=== PATIENT | female | born 1955 | race Caucasian/White ===

== ENCOUNTER 2017-07-13 09:26 | Emergency (ER) | payer OTHER, SELFPAY ==
--- NOTE | 2017-07-13 09:26 | DT_ITS ---
This patient was seen during an EMR downtime July 13, 2017 - July 20, 2017. This patient may have a combination of paper and electronic documentation or all paper documentation. All documentation is viewable within the e-chart portion of [employer] for each patient visit.
--- NOTE | 2017-07-13 10:00 | CT_ITS ---
STUDY: CT BRAIN WITHOUT CONTRAST REASON FOR EXAM: Female, 61 years old. DIZZINESS,HEADACHE. Weight loss. Prelim report scanned in RADIATION DOSAGE (If Supplied By Facility): CTDIvol = ( 44.99 ) mGy, DLP = ( 762.36 ) mGycm TECHNIQUE: Transaxial CT imaging of the brain was performed without administration of intravenous contrast material. Individualized dose optimization techniques were used for this CT. COMPARISON: None. FINDINGS: Normal soft tissue structures. Normal calvarium. There are calcifications around the cavernous carotid arteries. This is consistent for atherosclerotic disease. There is mild cerebral atrophy with widening of the extra-axial spaces and ventricular dilatation. Normal white matter tracts of the cerebral hemispheres. Normal basal ganglia and thalami. Normal brainstem. Normal cerebellum. There is no intracranial hemorrhage. There are no findings of an acute ischemic infarction. Normal visualized paranasal sinuses. CT/Brain/Head without Contrast IMPRESSION: There is mild cerebral atrophy with widening of the extra-axial spaces and ventricular dilatation. There are no acute findings. Electronically Signed: Daniel Thomas MD at 17:01 EDT , Service support ,
--- NOTE | 2017-07-13 10:15 | RAD_ITS ---
STUDY: X-RAY CHEST REASON FOR EXAM: Female, 61 years old. Weight loss. Smoking TECHNIQUE: PA and lateral views of the chest. COMPARISON: None. FINDINGS: There are monitoring devices. There is hyperinflation of the lungs consistent with chronic obstructive lung disease (COPD). There is no demonstrated pleural abnormality. Normal size heart. Normal mediastinum and anand. Normal visualized pulmonary arteries. Normal visualized aortic arch and descending thoracic aorta. Normal visualized thoracic spine. Normal visualized ribs, clavicles, and shoulders. There is no demonstrated abnormality of the visualized soft tissue structures of the upper abdomen. RAD/Chest PA and Lateral IMPRESSION: Degenerative changes, as described above. No demonstrated acute cardiopulmonary process. Electronically Signed: Michoacano Morin MD at 13:38 EDT , Service support ,
[2017-07-16 11:11] LABS: Anion Gap 10 (5-15); BUN 14 mg/dL (7-18); BUN/Creat Ratio 14.4 RATIO (10-20); Calcium,Total 8.9 mg/dL (8.5-10.1); Chloride 101 mmol/L (98-107); Creatinine, Serum 0.97 mg/dL (0.55-1.02); EST Glomerular Filtration Rate 62 mL/min (>60); Est Glom Filt Rate - Afr Amer 75 mL/min (>60); Glucose 114 mg/dL (74-106); Potassium 3.1 mmol/L (3.5-5.1); Sodium Level 140 mmol/L (136-145)
[2017-07-16 16:58] LABS: Absolute Lymphocyte Count 2.48 X10^3/ul (0.83-4.51); Absolute Neutrophil Count 2.8 X10^3/uL (2.0-7.7); Basophil# 0.01 X10^3/uL; Basophil% 0.2 % (0-1); Eosinophil# 0.08 X10^3/uL; Eosinophils% 1.4 % (0-5); Hematocrit 41.5 % (37-47); Hemoglobin 14.3 g/dl (12.0-15.0); Lymphocyte # 2.48 X10^3/ul (4.0); Lymphocyte % 43.9 % (19-41); Mean Corp Hgb Conc 34.5 g/gl (32-36); Mean Corpuscular Hgb 29.9 pg (27.0-32.0); Mean Corpuscular Volume 86.8 fL (81-99); Mean Platelet Vol. 9.9 fl (6.2-12.0); Monocyte% 5.3 % (0-10); Neutrophil # 2.78 X10^3/uL (2.7-7.7); Neutrophil % 49.2 % (47-70); POSITIVE COUNT NO; POSITIVE DIFFERENTIAL NO; POSITIVE MORPHOLOGY NO; Platelet Count 276 K/mm3 (150-450); RBC Distribution Width CV 12.7 % (11.6-14.6); RBC Distribution Width SD 39.6 fl (35.1-43.9); Red Blood Count 4.78 M/mm3 (4.2-5.4); White Blood Count 5.7 K/mm3 (4.4-11.0)
== END 2017-07-13 12:40 | disposition home or self-care (01) ==
PROVIDERS: Emergency Provider Emergency Medicine; Family Provider Nurse Practitioner Family; PCP Nurse Practitioner Family
DX: R51 Headache (principal); I10 Essential (primary) hypertension; K21.9 Gastro-esophageal reflux disease without esophagitis; B19.20 Unspecified viral hepatitis C without hepatic coma; R63.4 Abnormal weight loss; Z79.899 Other long term (current) drug therapy
CPT/HCPCS: 70450; 71046; 80048; 85025; 99284; J7030; A4216

== ENCOUNTER 2020-04-19 08:06 | Outpatient (RCR) | payer OTHER, SELFPAY ==
[2016-01-22 04:53] VITALS: BMI 20.9
[2020-04-19] MEDS: COVID-19 VACC, MRNA(PFIZER)/PF 30 MCG/0.3 ML SYRINGE IM (16:22)
[2020-05-10] MEDS: COVID-19 VACC, MRNA(PFIZER)/PF 30 MCG/0.3 ML SYRINGE IM (16:08)
== END 2020-07-17 23:59 ==
LOC: IMMUN 08:06
PROVIDERS: PCP Nurse Practitioner Adult Health; Referring Provider Family Medicine; Visit Provider Family Medicine
DX: Z23 Encounter for immunization (principal)
CPT/HCPCS: 0001A; 0002A; 91300

== ENCOUNTER 2024-01-28 06:53 | Day surgery (SDC) | payer MEDICARE, SELFPAY ==
--- NOTE | 2024-01-21 12:23 | EKG12_ITS ---
Test Reason : PREOP Blood Pressure : */* mmHG Vent. Rate : 77 BPM Atrial Rate : 77 BPM P-R Int : 158 ms QRS Dur : 120 ms QT Int : 398 ms P-R-T Axes : 81 119 64 degrees QTcB Int : 450 ms Sinus rhythm with occasional Premature ventricular complexes Right bundle branch block Septal infarct , age undetermined Abnormal ECG Confirmed by PARVEEN DIAMOND, CON ([id number]), editor in chief newspaper NANCY ROMAN ([id number]) on 01/27/2024 2:13:08 P M Referred By: Ada Romo Confirmed By: CON SAINI MD
--- NOTE | 2024-01-22 08:52 | PAT.ANESEVAL ---
Pre-Assessment Diagnosis/Proposed Procedure Planned Operative Procedure(s): CYSTO BLADDER BIOPSY WITH FULGERATION Anesthesia History Anesthesia History - jig and fixture builder: Anesthesia History - jig and fixture builder Hx Hospitalization No 01/20/24 12:29 Any Problems With Anesthesia No 01/20/24 12:29 Cholinesterase deficiency No 01/20/24 12:29 You/Your Family Experience No 01/20/24 12:29 fever (hyperthermia) with Relationship Recent Exposure to Contagious Disease Does patient have nerve No 01/20/24 12:29 stimulator Patient instructed to have device shut off --Does patient have Pacemaker or ICD? When Was Last Pacemaker Check QUESTION #4 FULL TEXT: You/Your Family Experience fever (hyperthermia) with Anesthesia Last Oral Intake Last Oral intake: Last Oral Intake NPO since Meds taken in AM with sips of water? Meds patient instructed to take am of surgery PONV PONV - jig and fixture builder: PONV - jig and fixture builder Female Yes 01/20/24 12:29 HX of Motion Sickness Yes 01/20/24 12:29 HX of N/V After Surgery No 01/20/24 12:29 Non-Smoker Yes 01/20/24 12:29 Duration of Surgery greater No 01/20/24 12:29 than 60 minutes Number of Risk Factors 3 01/20/24 12:29 PONV Score Moderate Risk 01/20/24 12:29 Respiratory Assessment Respiratory Assessment - jig and fixture builder: Respiratory Tract Infection Hx - jig and fixture builder Hx Respiratory Tract Infection No 01/20/24 12:29 STOP Sleep Apnea STOP Sleep Apnea - jig and fixture builder: STOP Sleep Apnea - jig and fixture builder Hx Hypertension Yes: CONTROLLED WITH MEDS 01/20/24 12:29 Hx Sleep Apnea No 01/20/24 12:29 CPAP No 01/22/16 09:54 BIPAP No 01/22/16 01:35 Do you snore loudly (louder No 01/20/24 12:29 than talking or can be heard Do you often feel tired/ Yes 01/20/24 12:29 fatigued/ sleepy during daytime? Has anyone observed you stop No 01/20/24 12:29 breathing during sleep? STOP Results Positive 01/20/24 12:29 QUESTION #5 FULL TEXT : Do you snore loudly (louder than talking or can be heard through closed doors)? Tobacco Use History Tobacco Use History - jig and fixture builder: Tobacco Use History - jig and fixture builder Tobacco Use Smoking Status Former smoker 01/20/24 12:29 Hx Tobacco Use No 01/20/24 12:29 Years Smoking Packs Smoked per Day Smoking Cessation Date was Yes - quit smoking within 15 01/20/24 12:29 within the last 15 years years Hx Smoking Cessation Date 02/10/16 01/20/24 12:29 Hx Smoking Cessation No 01/20/24 12:29 Counseling Hematologic Medial History Hematologic Hx - jig and fixture builder: Hematologic Medical Hx - chief engineer's helper Hx of Blood Transfusion No 01/20/24 12:29 Hx of Transfusion in last 3 No 01/20/24 12:29 Months Date of Last Transfusion (if within last 3 months) Ever experience any problems No 01/20/24 12:29 with transfusion(s)? Specify any problems Hx of Preganancy in last 3 No 01/20/24 12:29 Months Nurse Filling Out Transfusion DSCHRIBER 01/20/24 12:29 & Questions: Date: 01/20/24 01/20/24 12:29 Time: 12:31 01/20/24 12:29 Patient unable to answer at this time (ie. confused, unrespo /Reproduction History /Reproductive History - jig and fixture builder: /Reproductive Hx- jig and fixture builder Hx Now No 01/20/24 12:29 Gestational Age (in weeks): EDC: Hx Hx Para Hx Section SAB No 01/20/24 12:29 [facility] Medical History (Updated 01/20/24 @ 12:36 by Lyla Ornelas) Wears glasses Wears dentures Post-menopausal Depression Anxiety Thyroid disease Bladder disease Fatty liver Easy bruising High cholesterol Back pain Gastric reflux Former smoker History of pain when walking Hypertension Home Medications ?Medication ?Instructions ?Recorded ?Last Taken ?Type lorazepam 2 mg tablet (Ativan) 2 mg PO BID 10/10/15 01/20/16 History trazodone 50 mg tablet 50 mg PO QHS 10/10/15 01/19/16 History venlafaxine 100 mg tablet 150 mg PO BID 10/10/15 01/20/16 History levothyroxine 25 mcg tablet 25 mcg PO DAILY 01/20/16 01/20/16 History losartan 25 mg tablet 25 mg PO DAILY 01/20/16 01/20/16 History pantoprazole 40 mg tablet,delayed 40 mg PO DAILY 01/20/16 01/20/16 History release amlodipine 2.5 mg tablet 2.5 mg PO DAILY 01/20/24 Unknown History famotidine 20 mg tablet 20 mg PO QHS 01/20/24 Unknown History irbesartan 150 mg tablet 150 mg PO DAILY 01/20/24 Unknown History olanzapine 5 mg tablet 5 mg PO QHS 01/20/24 Unknown History solifenacin 5 mg tablet 5 mg PO DAILY 01/20/24 Unknown History Allergy/AdvReac Type Severity Reaction Status Date / Time Penicillins Allergy Swelling Verified 01/20/24 12:20 Surgical History (Updated 01/20/24 @ 12:36 by Lyla Ornelas) History of esophagogastroduodenoscopy (EGD) History of lumpectomy of right breast Hx of cholecystectomy History of ERCP Social History Smoking Status: Former smoker Audit: Pertinent Findings Pertinent Findings EKG Perinent findings: 2015 NSR, NSST Recommendation Anesthesia Recommendation Anesthesia recommendation: OPTIMIZED for anesthesia
[2024-01-25 12:38] LABS: Hemoglobin 11.6 g/dL (12.0-15.0); Mean Corp Hgb Conc 32.2 g/dL (32-36); Mean Corpuscular Hgb 29.5 pg (27.0-32.0); Mean Corpuscular Volume 91.6 fL (81-99); Mean Platelet Vol. 9.4 fl (6.2-12.0); Platelet Count 240 K/mm3 (150-450); RBC Distribution Width SD 43.8 fl (35.1-43.9); Red Blood Count 3.93 M/mm3 (4.2-5.4); White Blood Count 5.9 K/mm3 (4.4-11.0)
[2024-01-25 12:48] LABS: Prothrombin Time (Protime)PT. 13.4 SECONDS (11.7-14.9)
[2024-01-25 13:06] LABS: Anion Gap 3 (5-15); BUN 14 mg/dL (7-18); BUN/Creat Ratio 15.5 RATIO (10-20); Calcium,Total 9.4 mg/dL (8.5-10.1); Chloride 108 mmol/L (98-107); EST Glomerular Filtration Rate 66 mL/min (>60); Est Glom Filt Rate - Afr Amer 80 mL/min (>60); Glucose 127 mg/dL (74-106); Potassium 3.6 mmol/L (3.5-5.1); Sodium Level 142 mmol/L (136-145)
[2024-01-25 13:34] LABS: AST(SGOT) 18 U/L (15-37); Alanine Aminotransfer ALT/SGPT 19 U/L (13-56); Albumin, Serum 3.6 g/dL (3.2-5.0); Alkaline Phosphatase 67 U/L (45-117); Bilirubin, Direct 0.07 mg/dL (0.00-0.30); Globulin 3.8 g/dL (2.2-4.2); Protein, Total 7.4 g/dL (6.4-8.2)
[2024-01-28] VITALS (7 sets, daily range): BP systolic 102–114; BP diastolic 50–66; PULSE 57–71; RESP 14–18; TEMP 36.2–36.8; O2SAT 94–99; BMI 18.2
--- NOTE | 2024-01-28 07:21 | PCM.PRE.AN2 ---
ASA Classification* ASA Classification ASA Classification: 2 Assessment & Plan Anesthesia* Anesthesia Assessment Anesthesia Assessment: Discussed sedation and/or anesthesia options, risks, benefits, and alternatives with patient/parents/legal guardian/POA. Questions invited. The patient/parents/legal guardian/POA seems to understand and agrees to proceed with anesthesia plan. Reviewed the physical assessment, medical history, allergy history and patient home medications list prior to surgery/procedure/anesthetic and documented any changes. Performed airway and anesthesia risk assessments. Anesthesia Type Anesthesia Type: General Anesthesia Focused Assessment* Airway Assessment Mouth opens: >3 cm Mallampati Score: II Focused Labs Anesthesia Preop lab: CBC WBC 5.9 K/mm3 (4.4-11.0) 01/25/24 11:46 RBC 3.93 M/mm3 (4.2-5.4) L 01/25/24 11:46 Hgb 11.6 g/dL (12.0-15.0) L 01/25/24 11:46 Hct 36.0 % (37-47) L 01/25/24 11:46 Plt Count 240 K/mm3 (150-450) 01/25/24 11:46 CHEMISTRY Potassium 3.6 mmol/L (3.5-5.1) 01/25/24 11:46 Sodium 142 mmol/L (136-145) 01/25/24 11:46 BUN 14 mg/dL (7-18) 01/25/24 11:46 Creatinine 0.90 mg/dL (0.55-1.02) 01/25/24 11:46 Glucose 127 mg/dL (74-106) H 01/25/24 11:46 TSH 2.060 uIU/mL (0.358-3.740) 01/25/24 11:46 COAG PT 13.4 SECONDS (11.7-14.9) 01/25/24 11:46 Pre-Assessment Diagnosis/Proposed Procedure Planned Operative Procedure(s): CYSTO BLADDER BIOPSY WITH FULGERATION Anesthesia History Anesthesia History - schedule maker: Anesthesia History - schedule maker Hx Hospitalization No 01/20/24 12:29 Any Problems With Anesthesia No 01/20/24 12:29 Cholinesterase deficiency No 01/20/24 12:29 You/Your Family Experience No 01/20/24 12:29 fever (hyperthermia) with Relationship Recent Exposure to Contagious Disease Does patient have nerve No 01/20/24 12:29 stimulator Patient instructed to have device shut off --Does patient have Pacemaker or ICD? When Was Last Pacemaker Check QUESTION #4 FULL TEXT: You/Your Family Experience fever (hyperthermia) with Anesthesia Last Oral Intake Last Oral intake: Last Oral Intake NPO since Meds taken in AM with sips of water? Meds patient instructed to take am of surgery PONV PONV - schedule maker: PONV - schedule maker Female Yes 01/20/24 12:29 HX of Motion Sickness Yes 01/20/24 12:29 HX of N/V After Surgery No 01/20/24 12:29 Non-Smoker Yes 01/20/24 12:29 Duration of Surgery greater No 01/20/24 12:29 than 60 minutes Number of Risk Factors 3 01/20/24 12:29 PONV Score Moderate Risk 01/20/24 12:29 Respiratory Assessment Respiratory Assessment - schedule maker: Respiratory Tract Infection Hx - schedule maker Hx Respiratory Tract Infection No 01/20/24 12:29 STOP Sleep Apnea STOP Sleep Apnea - schedule maker: STOP Sleep Apnea - schedule maker Hx Hypertension Yes: CONTROLLED WITH MEDS 01/20/24 12:29 Hx Sleep Apnea No 01/20/24 12:29 CPAP No 01/22/16 09:54 BIPAP No 01/22/16 01:35 Do you snore loudly (louder No 01/20/24 12:29 than talking or can be heard Do you often feel tired/ Yes 01/20/24 12:29 fatigued/ sleepy during daytime? Has anyone observed you stop No 01/20/24 12:29 breathing during sleep? STOP Results Positive 01/20/24 12:29 QUESTION #5 FULL TEXT : Do you snore loudly (louder than talking or can be heard through closed doors)? Tobacco Use History Tobacco Use History - schedule maker: Tobacco Use History - schedule maker Tobacco Use Smoking Status Former smoker 01/20/24 12:29 Hx Tobacco Use No 01/20/24 12:29 Years Smoking Packs Smoked per Day Smoking Cessation Date was Yes - quit smoking within 15 01/20/24 12:29 within the last 15 years years Hx Smoking Cessation Date 02/10/16 01/20/24 12:29 Hx Smoking Cessation No 01/20/24 12:29 Counseling Hematologic Medial History Hematologic Hx - schedule maker: Hematologic Medical Hx - radio repairer Hx of Blood Transfusion No 01/20/24 12:29 Hx of Transfusion in last 3 No 01/20/24 12:29 Months Date of Last Transfusion (if within last 3 months) Ever experience any problems No 01/20/24 12:29 with transfusion(s)? Specify any problems Hx of Preganancy in last 3 No 01/20/24 12:29 Months Nurse Filling Out Transfusion DSCHRIBER 01/20/24 12:29 & Questions: Date: 01/20/24 01/20/24 12:29 Time: 12:31 01/20/24 12:29 Patient unable to answer at this time (ie. confused, unrespo /Reproduction History /Reproductive History - schedule maker: /Reproductive Hx- schedule maker Hx Now No 01/20/24 12:29 Gestational Age (in weeks): EDC: Hx Hx Para Hx Section SAB No 01/20/24 12:29 Active Medications Active Medications: Current Medications Generic Name Dose Route Start Last Admin Trade Name Freq PRN Reason Stop Dose Admin Ciprofloxacin 400 mg in 200 mls @ 200 mls/hr 01/28/24 08:25 Cipro IV 01/28/24 09:24 PREOP [facility] Medical History (Updated 01/20/24 @ 12:36 by Lyla Ornelas) Wears glasses Wears dentures Post-menopausal Depression Anxiety Thyroid disease Bladder disease Fatty liver Easy bruising High cholesterol Back pain Gastric reflux Former smoker History of pain when walking Hypertension Home Medications ?Medication ?Instructions ?Recorded ?Last Taken ?Type lorazepam 2 mg tablet (Ativan) 2 mg PO BID 10/10/15 01/20/16 History trazodone 50 mg tablet 50 mg PO QHS 10/10/15 01/19/16 History venlafaxine 100 mg tablet 150 mg PO BID 10/10/15 01/20/16 History levothyroxine 25 mcg tablet 25 mcg PO DAILY 01/20/16 01/20/16 History losartan 25 mg tablet 25 mg PO DAILY 01/20/16 01/20/16 History pantoprazole 40 mg tablet,delayed 40 mg PO DAILY 01/20/16 01/20/16 History release amlodipine 2.5 mg tablet 2.5 mg PO DAILY 01/20/24 Unknown History famotidine 20 mg tablet 20 mg PO QHS 01/20/24 Unknown History irbesartan 150 mg tablet 150 mg PO DAILY 01/20/24 Unknown History olanzapine 5 mg tablet 5 mg PO QHS 01/20/24 Unknown History solifenacin 5 mg tablet 5 mg PO DAILY 01/20/24 Unknown History Allergy/AdvReac Type Severity Reaction Status Date / Time Penicillins Allergy Swelling Verified 01/28/24 07:21 Surgical History (Updated 01/20/24 @ 12:36 by Lyla Ornelas) History of esophagogastroduodenoscopy (EGD) History of lumpectomy of right breast Hx of cholecystectomy History of ERCP Social History Smoking Status: Former smoker Review of Systems (Anesthesia) ROS Narrative System reviewed and no additional complaints, except as documented.
[2024-01-28] MEDS: 0.9% Normal Saline (1000mL) 1,000 ML 15 ML IV (07:30)
--- NOTE | 2024-01-28 08:25 | BLA_PTH ---
PATIENT: EDITH CLARK LOC: [facility] U#:[id number] AGE/SX: 68/F ROOM: RE01/28/[address]: Dr. Ada Romo MD : 1955 BED: DIS: 01/28/2024 SPEC #: [id number] RECD: 01/28/24 11:27 STATUS: ELVI REDavid #: [id number] JUAN MANUEL: 01/28/24 08:[address]: Ada Romo DEPT: SURGICAL PATHOLOGY RECD BY: Phillip Ayoub ENTERED: 01/28/24 12:28 SP TYPE: BLADDER BX OTHR DR: Dr. Wero Lovelace DO Tissues: Urinary bladder, NOS Procedures: Surgery Specimen Level IV HEADER OPERATION: Bladder biopsy with fulguration PRE-OP DIAGNOSIS: Urgency, frequency TISSUE SUBMITTED: Bladder biopsy MICROSCOPIC DIAGNOSIS Bladder, biopsy: Fragments of urothelial mucosa with chronic inflammation. Negative for malignancy. See comment. 01/29/2024 COMMENT Detrusor muscle is not identified in the specimen. Clinical correlation and appropriate follow up are necessary. MICROSCOPIC DESCRIPTION Slides are reviewed. GROSS DESCRIPTION Received in fixative is one container labeled with the patient's name and designated Bladder biopsy. The specimen consists of two irregular fragments of light pino soft tissue that in aggregate measure 0.2 x 0.1 x 0.1 cm. The specimen is totally submitted in one cassette. 01/28/2024 TC:3 CPT:80842
--- NOTE | 2024-01-28 08:44 | EX.PCM.DISCH ---
Discharge Instructions Diet Discharge Diet: No restrictions Activity Discharge Activity: Return to Normal Activity Dressing / Incision Call your doctor if you observe: Fever of 101 or Higher, Inability to urinate and Inability to have a bowel movement Follow Up Care Please Follow Up With: Ada Romo MD When: in the office in 2 weeks Test Results: Test results from this visit will be discussed in further detail at your follow-up appointment, if applicable. Discharge Plan Admission Attending Provider: Ada Romo Primary Care Provider: Wero Lovelace Instructions Print Language: Kinyarwanda Discharge Orders/Prescriptions Prescriptions: New oxycodone-acetaminophen 5-325 mg tablet 1 tab PO Q8H PRN PRN (Reason: Pain) 3 Days Qty: 10 0RF phenazopyridine [Pyridium] 200 mg tablet 200 mg PO TID PRN PRN (Reason: Bladder Spasms) 7 Days Qty: 30 0RF nitrofurantoin monohyd/m-cryst [Macrobid] 100 mg capsule 100 mg PO BID Qty: 6 0RF Rx Instructions: must administer with a meal/food Continued trazodone 50 MG tablet 50 mg PO QHS Patient Comments: sleep venlafaxine 100 MG tablet 150 mg PO BID Patient Comments: mood lorazepam [Ativan] 2 MG tablet 2 mg PO BID Patient Comments: anxiety levothyroxine 25 MCG tablet 25 mcg PO DAILY Patient Comments: thyroid pantoprazole 40 MG tablet 40 mg PO DAILY Patient Comments: GERD amlodipine 2.5 mg tablet 2.5 mg PO DAILY famotidine 20 mg tablet 20 mg PO QHS olanzapine 5 mg tablet 5 mg PO QHS irbesartan 150 mg tablet 150 mg PO DAILY solifenacin 5 mg tablet 5 mg PO DAILY Disposition Disposition (needs filled in before D/C Order can be placed): Home, Self Care
[2024-01-28] MEDS: Ciprofloxacin 400 MG/200 ML BAG 200 MG IV (08:50)
--- NOTE | 2024-01-28 08:53 | PCM.OPRPT ---
Operative Report (Standard) Operative Information Date of Procedure: 01/28/24 Pre-Operative Diagnosis: Bladder lesion Post-Operative Diagnosis: Same Surgery/Procedure Performed: Bladder biopsy with fulguration dental sales representative: No Type of Anesthesia: MAC RN Documented Start/Stop Times: Operation Date: 01/28/24 08:25 Case Time Into Pre-Op 01/28/24 07:03 Out of Pre-Op 01/28/24 08:45 Procedure Start Time: 09:02 Procedure Stop Time: 09:09 Select all DRAINS/GRAFTS/IMPLANTS that apply: None Estimated Blood Loss: <5cc Specimen collected: Yes Description of specimen(s) removed: Bladder mucosal biopsy Description of surgery: The patient is a 68-year-old female who was undergoing a cystoscopy in the office for evaluation of incontinence and an abnormal rippling appearance of her mucosa was identified adjacent to the left ureteral orifice. The decision was made to biopsy this area and informed consent was obtained. She was taken to the operating room and placed on the operating room table. Anesthesia monitored the head, neck, airway, IV access and vital signs throughout the case. Once anesthesia was appropriately administered, she was placed into dorsolithotomy position and prepped and draped in usual sterile fashion. The cystoscope was inserted through the urethra under direct visualization into the urinary bladder. The bladder mucosa was visualized in its entirety and the only abnormal findings were the ones seen in the office adjacent to the left ureteral orifice. This area is approximately 1.5 cm in diameter. Using biopsy forceps, 2 biopsies of this area were performed and then the Bugbee was used for cauterization for hemostatic control and tissue treatment. After hemostasis was obtained, the bladder was emptied and the cystoscope was removed. The patient was awakened and taken to the recovery room in good condition. There were no complications during this procedure. Surgical Findings: no other abnormal mucosa Complications Complications: No Admit VTE Documentation VTE Present on Admission: Yes VTE Mechan Device Prophylaxis: SCD's VTE Pharm Prophylaxis ordered?: No Reason prophylaxis not ordered: Treatment Not Indicated
--- NOTE | 2024-01-28 09:38 | PCM.POST.ANE ---
Anesthesia: Postop Eval I Current Vital Signs Temperature: 97.1 F Pulse Rate: 62 Blood Pressure: 114/66 Respiratory Rate: 14 Pulse Ox: 96 Oxygen Delivery Method: Room Air Assessment Airway patent: Yes Spontaneous unlabored respirations: Yes Mental status: Awake and Calm nausea: No Vomiting: No Anesthesia Complication: No Fluid Hydration Crystalloid volume administer (ml): 200 Total IV fluid infused: 200 Progress Note Anesthesia document: Postop Eval 1 completed: Yes
--- NOTE | 2024-01-29 07:32 | POSTOPAN2_ITS ---
Anesthesia Postop Eval I Sum Postop Eval Completion status Anesthesia document: Postop Eval 1 completed: Yes Anesthesia Postop Eval I Summary Anesthesia Postop Eval I Summary: Anesthesia Postop Eval I: Assessment Summary Airway patent Yes 01/28/24 09:39 DIRECTOR SECURITY MANAGEMENT.[email or web address] Spontaneous unlabored Yes 01/28/24 09:39 DIRECTOR SECURITY MANAGEMENT.LEILA respirations Mental status Awake,Calm 01/28/24 09:39 DIRECTOR SECURITY MANAGEMENT.LEILA nausea No 01/28/24 09:39 DIRECTOR SECURITY MANAGEMENT.LEILA Vomiting No 01/28/24 09:39 DIRECTOR SECURITY MANAGEMENTCIELO Anesthesia Postop Eval I: Fluid Summary Crystalloid volume administer 200 01/28/24 09:39 DIRECTOR SECURITY MANAGEMENT.LEILA (ml) Colloids volume administered ( ml) Blood Product volume administered (ml) Total IV fluid infused 200 01/28/24 09:39 DIRECTOR SECURITY MANAGEMENT.LEILA Anesthesia Postop Eval I: Summary Notes Anesthesia Complication No 01/28/24 09:39 TUAN Anesthesia Complication Comment: Post-operative progress note Anesthesia: Postop Eval II Evaluation Mental status: Awake Pain Level: 0 nausea: No Vomiting: No
--- NOTE | 2024-01-29 07:32 | PCM.POSTANE2 ---
Anesthesia Postop Eval I Sum Postop Eval Completion status Anesthesia document: Postop Eval 1 completed: Yes Anesthesia Postop Eval I Summary Anesthesia Postop Eval I Summary: Anesthesia Postop Eval I: Assessment Summary Airway patent Yes 01/28/24 09:39 SPEECH LANGUAGE ASSISTANT.[email or web address] Spontaneous unlabored Yes 01/28/24 09:39 SPEECH LANGUAGE ASSISTANT.LEILA respirations Mental status Awake,Calm 01/28/24 09:39 SPEECH LANGUAGE ASSISTANT.LEILA nausea No 01/28/24 09:39 SPEECH LANGUAGE ASSISTANT.LEILA Vomiting No 01/28/24 09:39 SPEECH LANGUAGE ASSISTANTCIELO Anesthesia Postop Eval I: Fluid Summary Crystalloid volume administer 200 01/28/24 09:39 SPEECH LANGUAGE ASSISTANT.LEILA (ml) Colloids volume administered ( ml) Blood Product volume administered (ml) Total IV fluid infused 200 01/28/24 09:39 SPEECH LANGUAGE ASSISTANT.LEILA Anesthesia Postop Eval I: Summary Notes Anesthesia Complication No 01/28/24 09:39 TUAN Anesthesia Complication Comment: Post-operative progress note Anesthesia: Postop Eval II Evaluation Mental status: Awake Pain Level: 0 nausea: No Vomiting: No
== END 2024-01-28 10:07 | disposition home or self-care (01) ==
LOC: SDC 07:01 → AC 07:02
PROVIDERS: Anesthesiology; PCP Student in an Organized Health Care Education/Training Program; Referring Provider Urology; Visit Provider Urology
PROC: 0TBB8ZX Excision of Bladder, Via Natural or Artificial Opening Endoscopic, Diagnostic (ICD-10-PCS; CPT 52204; principal; 2024-01-28 08:15)
DX: N30.20 Other chronic cystitis without hematuria (principal); N32.81 Overactive bladder; R35.1 Nocturia; N39.41 Urge incontinence; K59.09 Other constipation; N95.2 Postmenopausal atrophic vaginitis; E03.9 Hypothyroidism, unspecified; Z87.891 Personal history of nicotine dependence; Z90.49 Acquired absence of other specified parts of digestive tract; Z86.19 Personal history of other infectious and parasitic diseases; R94.31 Abnormal electrocardiogram [ECG] [EKG]; I45.10 Unspecified right bundle-branch block
CPT/HCPCS: 52204; 00910; 36415; 80048; 80076; 84443; 85027; 85610; 85730; 88305; 93005; A4216; J0744; J2405